=== PATIENT | female | born 1995 | race Caucasian/White ===

== ENCOUNTER 2018-07-21 13:13 | Inpatient (IN) | payer OTHER ==
[2018-07-21 16:27] VITALS: BMI 22.6
--- NOTE | 2018-07-21 17:40 | HP ---
CIWA Score Nausea/Vomitin Muscle Tremors: 1-None Visible, but [place] Anxiety: 3 Agitation: 2 Paroxysmal Sweats: 1-Minimal Palms Moist Orientation: 0-Oriented Tacttile Disturbances: 2-Mild Itch/Numbness/Burn Auditory Disturbances: 0-None Visual Disturbances: 0-None Headache: 1-Very Mild CIWA-Ar Total Score: 13 - Admission Criteria OASAS Guidelines: Admission for Medically Managed Detox: Requires at least one of the followin. CIWA greater than 12 2. Seizures within the past 24 hours 3. Delirium tremens within the past 24 hours 4. Hallucinations within the past 24 hours 5. Acute intervention needed for co occurring medical disorder 6. Acute intervention needed for co occurring psychiatric disorder 7. Severe withdrawal that cannot be handled at a lower level of care (continued vomiting, continued diarrhea, abnormal vital signs) requiring intravenous medication and/or fluids 8. Patient presents the following: CIWA greater than 12 Admission Criteria Met: Admission criteria met Admission ROS [facility] - [facility] Chief Complaint: alcohol withdrawal symptoms Allergies/Adverse Reactions: Allergies Allergy/AdvReac Type Severity Reaction Status Date / Time No Known Allergies Allergy Verified 07/21/18 17:25 History of Present Illness: 22 yo female with hx of marijuana and alcohol dependence is here seeking detox for alcohol withdrawal. Reports drinking has worsen after the of her six months ago. Reports hx of ETOH blackouts with last episode. Reports attempted detox at [facility] last night and left AMA. PMHX: GERD, Asthma, depression. Longest period of sobriety while . Denies suicidal / homicidal ideation Exam Limitations: No Limitations - Ebola screening Have you traveled outside of the country in the last 21 days: No Have you had contact with anyone from an Ebola affected area: No Have you been sick,other than usual withdrawal symptoms: No Do you have a fever: No - Review of Systems Constitutional: Chills, Loss of Appetite, Unintentional Wgt. Loss EENT: reports: No Symptoms Reported Respiratory: reports: No Symptoms reported Cardiac: reports: No Symptoms Reported GI: reports: Poor Appetite, Poor Fluid Intake, Indigestion, Abdominal cramping : reports: No Symptoms Reported Musculoskeletal: reports: Back Pain Integumentary: reports: No Symptoms Reported Neuro: reports: Headache Endocrine: reports: Increased Thirst Hematology: reports: No Symptoms Reported Psychiatric: reports: Orientated x3, Depressed Other Systems: Reviewed and Negative Patient History - Patient Medical History Hx Anemia: No Hx Asthma: Yes (Pt is on MDI.) Hx Chronic Obstructive Pulmonary Disease (COPD): No Hx Cancer: No Hx Cardiac Disorders: No Hx Congestive Heart Failure: No Hx Hypertension: No Hx Hypercholesterolemia: No Hx Pacemaker: No HX Cerebrovascular Accident: No Hx Seizures: No Hx Dementia: No Hx Diabetes: No Hx Gastrointestinal Disorders: No Hx Liver Disease: No Hx Genitourinary Disorders: No Hx Sexually Transmitted Disorders: Yes (Tx for chlamydia) Hx Renal Disease (ESRD): No Hx Thyroid Disease: No Hx Human Immunodeficiency Virus (HIV): No Hx Hepatitis C: No Hx Depression: Yes Hx Suicide Attempt: No Hx Bipolar Disorder: No Hx Schizophrenia: No - Patient Surgical History Past Surgical History: No - PPD History Previous Implant?: Yes Documented Results: Negative w/o proof Implanted On Prior [facility] Admission?: No PPD to be Administered?: Yes - Reproductive History Patient is a Female of Child Bearing Age (11 -55 yrs old): Yes Last Menstrual Period: 06/17/18 Patient : No - Smoking Cessation Smoking history: Current every day smoker Have you smoked in the past 12 months: Yes Aproximately how many cigarettes per day: 20 Hx Chewing Tobacco Use: No Initiated information on smoking cessation: Yes 'Breaking Loose' booklet given: 07/21/18 - Substance & Tx. History Hx Alcohol Use: Yes Hx Substance Use: Yes Substance Use Type: Alcohol, Marijuana Hx Substance Use Treatment: Yes ([facility] was there last night and AMA ) - Substances Abused Alcohol Route: Oral Frequency: Daily Amount used: 10 beers or 1 pint cognac Age of first use: 13 Date of Last Use: 07/21/18 Marijuana/Hashish Route: Smoking Frequency: Daily Amount used: 12 blunts Age of first use: 11 Date of Last Use: 07/20/18 Family Disease History - Family Disease History Family Disease History: Diabetes: Mother (alcoholism, kidney disease ), Heart Disease: Mother, Other: Father (alcoholism, alieve) Admission Physical Exam [facility] - Vital Signs Vital Signs: Vital Signs - 24 hr 07/21/18 16:25 Temperature 98.5 F Pulse Rate 93 H Respiratory 20 Rate Blood Pressure 118/86 - Physical General Appearance: Yes: Appropriately Dressed, Mild Distress, Thin, Anxious HEENTM: Yes: EOMI, Hearing grossly Normal, Normal ENT Inspection, Normocephalic , Normal Voice, CRISTIAN, Pharynx Normal, Tm's normal Respiratory: Yes: Chest Non-Tender, Lungs Clear, Normal Breath Sounds, No Respiratory Distress, No Accessory Muscle Use Neck: Yes: Within Normal Limits Breast: Yes: Breast Exam Deferred Cardiology: Yes: Regular Rhythm, Regular Rate Abdominal: Yes: Normal Bowel Sounds, Non Tender, Flat, Soft Genitourinary: Yes: Within Normal Limits Back: Yes: Normal Inspection Musculoskeletal: Yes: full range of Motion, Gait Steady, Pelvis Stable, Back pain Extremities: Yes: Normal Capillary Refill, Normal Inspection, Normal Range of Motion, Non-Tender Neurological: Yes: rv service technician II-XII NML intact, Fully Oriented, Alert, Motor Strength 5/5, Depressed Affect Integumentary: Yes: Normal Color, Warm, Moist Lymphatic: Yes: Within Normal Limits - Diagnostic (1) Asthma Current Visit: Yes Status: Chronic Qualifiers: Asthma severity: mild Asthma persistence: intermittent Asthma complication type: uncomplicated Qualified Code(s): J45.20 - Mild intermittent asthma, uncomplicated (2) Alcohol dependence with withdrawal Current Visit: Yes Status: Acute Qualifiers: Complication of substance-induced condition: uncomplicated Qualified Code(s ): F10.230 - Alcohol dependence with withdrawal, uncomplicated (3) Marijuana dependence Current Visit: Yes Status: Acute (4) Bereavement Current Visit: Yes Status: Acute Cleared for Admission [facility] - Detox or Rehab [facility] Level of Care: Medically Managed Detox Regimen/Protocol: Librium [facility] Breath Alcohol Content Breath Alcohol Content: 0.051 Urine Pregancy Test - Result Urine Test Results: Negative - NO Line Present Urine Drug Screen - Results Drug Screen Negative: No Urine Drug Screen Results: THC-Marijuana, BZO-Benzodiazepines Inpatient Rehab Admission - Rehab Decision to Admit Inpatient rehab admission?: No
[2018-07-21] MEDS ORDERED: ALBUTEROL SO4 0.083% IH SOL 2.5 MG/3 ML VIAL.NEB. NEB PRN (17:44)
[2018-07-21] MEDS ORDERED: MELATONIN 5 MG TABLETS PO PRN (17:56)
[2018-07-21] MEDS ORDERED: IBUPROFEN 400 MG TABLET (FP) PO PRN (17:56)
[2018-07-21] MEDS ORDERED: MENTHOL/PHENOL 1 EACH UD MM PRN (17:56)
[2018-07-21] MEDS ORDERED: chlordiazePOXIDE HCL 10 MG CAPSULE PO PRN (17:56)
[2018-07-21] MEDS ORDERED: hydrOXYzine PAMOATE 25 MG CAPSULE (FP) PO PRN (17:56)
[2018-07-21] MEDS ORDERED: chlordiazePOXIDE HCL 25 MG CAPSULE PO ONE (17:56)
[2018-07-21] MEDS ORDERED: traZODone HCL 50 MG TABLET (FP) PO PRN (17:56)
[2018-07-21] MEDS ORDERED: MAGNESIUM HYDROX 2400MG/30ML ORAL SUSPENSION 30 ML CUP PO PRN (17:56)
[2018-07-21] MEDS ORDERED: guaiFENesin 200 MG/10 ML 10 ML UNIT-DOSE CUPS PO PRN (17:56)
[2018-07-21] MEDS ORDERED: ONDANSETRON *ODT* 4 MG TABLET SL PRN (17:56)
[2018-07-21] MEDS ORDERED: MAG HYDROX/AL HYDROX/SIMETH 30 ML UNIT-DOSE CUP PO PRN (17:56)
[2018-07-21] MEDS ORDERED: MAGNESIUM CITRATE 300 ML BOTTLE PO PRN (17:56)
[2018-07-21] MEDS ORDERED: ACETAMINOPHEN 325 MG TABLET (FP) PO PRN (17:56)
[2018-07-21] MEDS ORDERED: diazePAM 5 MG TABLET PO ONE (19:45)
[2018-07-21] MEDS ORDERED: chlordiazePOXIDE HCL 25 MG CAPSULE PO SCH (21:00)
[2018-07-21] MEDS: diazePAM 5 MG TABLET PO SCH (21:55)
[2018-07-21] MEDS: METHOCARBAMOL 500 MG TABLET PO PRN (22:20)
[2018-07-22 03:45] LABS: URINE APPEARANCE CLEAR; URINE BILIRUBIN NEGATIVE (<2.0 mg/dL); URINE COLOR LTYELLOW; URINE GLUCOSE (UA) NEGATIVE (NEGATIVE); URINE KETONE NEGATIVE (NEGATIVE); URINE LEUK ESTERASE 1+ (NEGATIVE); URINE NITRITE NEGATIVE (NEGATIVE); URINE PROTEIN NEGATIVE (NEGATIVE); URINE UROBILINOGEN NEGATIVE mg/dL (0.2-1.0)
[2018-07-22 03:51] LABS: EPI CELLS RARE /HPF (FEW); URINE BACTERIA RARE /hpf (NONE SEEN); URINE MUCUS RARE
[2018-07-22] MEDS: diazePAM 5 MG TABLET PO SCH ×3 (05:24→22:12)
[2018-07-22] MEDS: METHOCARBAMOL 500 MG TABLET PO PRN (05:25)
[2018-07-22] MEDS: IBUPROFEN 400 MG TABLET (FP) PO PRN ×2 (05:27→22:41)
[2018-07-22] MEDS ORDERED: THIAMINE HCL 100 MG TABLET (FP) PO SCH (10:00)
[2018-07-22] MEDS: PRENATAL VITAMINS W/ FOLIC ACID TABLET (FP) PO SCH (10:12)
[2018-07-22 10:36] LABS: HEMOGLOBIN 13.4 GM/dL (10.7-15.3); MCH 29.5 pg (25.7-33.7); MCHC 33.6 g/dl (32.0-36.0); MEAN PLT VOLUME 8.7 fl (7.5-11.1); PLATELET COUNT 291 K/MM3 (134-434); RBC 4.54 M/mm3 (3.60-5.2); RDW 17.3 % (11.6-15.6); WHITE BLOOD COUNT 4.5 K/mm3 (4.0-10.0)
[2018-07-22 10:41] LABS: ALBUMIN 3.7 g/dl (3.4-5.0); ALK PHOS 44 U/L (45-117); ANION GAP 6 MMOL/L (8-16); BILIRUBIN,TOTAL 0.9 mg/dL (0.2-1); BLOOD UREA NITROGEN 10 mg/dL (7-18); CALCIUM 8.6 mg/dL (8.5-10.1); CHLORIDE 104 mmol/L (98-107); CO2 28 mmol/L (21-32); CREATININE 0.8 mg/dL (0.55-1.3); GLUCOSE,RANDOM 69 mg/dL (74-106); POTASSIUM 4.7 mmol/L (3.5-5.1); SGOT/AST 18 U/L (15-37); SGPT/ALT 18 U/L (13-61); SODIUM 138 mmol/L (136-145); TOT PROT 7.3 g/dl (6.4-8.2)
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
--- NOTE | 2018-07-22 14:05 | EKG ---
Test Reason : Blood Pressure : / mmHG Vent. Rate : 079 BPM Atrial Rate : 079 BPM P-R Int : 138 ms QRS Dur : 074 ms QT Int : 380 ms P-R-T Axes : 071 042 038 degrees QTc Int : 435 ms NORMAL SINUS RHYTHM POSSIBLE LEFT ATRIAL ENLARGEMENT BORDERLINE ECG NO PREVIOUS ECGS AVAILABLE Confirmed by VARUN URBAN, LONNIE ([id number]) on 07/22/2018 2:04:58 PM Referred By: Confirmed By:LONNIE BOND MD
--- NOTE | 2018-07-22 15:39 | PN ---
[facility] CIWA - CIWA Score Nausea/Vomitin-Mild Nausea/No Vomiting Muscle Tremors: 3 Anxiety: 1-Mildly Anxious Agitation: 2 Paroxysmal Sweats: 1-Minimal Palms Moist Orientation: 1-Uncertain about Date Tacttile Disturbances: 0-None Auditory Disturbances: 0-None Visual Disturbances: 0-None Headache: 0-None Present CIWA-Ar Total Score: 9 S Progress Note (SOAP) Subjective: tremor sweating trouble concentration low energy Objective: 07/22/18 15:40 Vital Signs Temperature 96.8 F L 07/22/18 13:22 Pulse Rate 74 07/22/18 13:22 Respiratory Rate 18 07/22/18 13:22 Blood Pressure 115/71 07/22/18 13:22 O2 Sat by Pulse Oximetry (%) Laboratory Last Values WBC 4.5 K/mm3 (4.0-10.0) 07/22/18 07:00 RBC 4.54 M/mm3 (3.60-5.2) 07/22/18 07:00 Hgb 13.4 GM/dL (10.7-15.3) 07/22/18 07:00 Hct 40.0 % (32.4-45.2) 07/22/18 07:00 MCV 88.0 fl (80-96) 07/22/18 07:00 MCH 29.5 pg (25.7-33.7) 07/22/18 07:00 MCHC 33.6 g/dl (32.0-36.0) 07/22/18 07:00 RDW 17.3 % (11.6-15.6) H 07/22/18 07:00 Plt Count 291 K/MM3 (134-434) 07/22/18 07:00 MPV 8.7 fl (7.5-11.1) 07/22/18 07:00 Sodium 138 mmol/L (136-145) 07/22/18 07:00 Potassium 4.7 mmol/L (3.5-5.1) 07/22/18 07:00 Chloride 104 mmol/L (98-107) 07/22/18 07:00 Carbon Dioxide 28 mmol/L (21-32) 07/22/18 07:00 Anion Gap 6 MMOL/L (8-16) L 07/22/18 07:00 BUN 10 mg/dL (7-18) 07/22/18 07:00 Creatinine 0.8 mg/dL (0.55-1.3) 07/22/18 07:00 Creat Clearance w eGFR > 60 (>60) 07/22/18 07:00 Random Glucose 69 mg/dL (74-106) L 07/22/18 07:00 Calcium 8.6 mg/dL (8.5-10.1) 07/22/18 07:00 Total Bilirubin 0.9 mg/dL (0.2-1) 07/22/18 07:00 AST 18 U/L (15-37) 07/22/18 07:00 ALT 18 U/L (13-61) 07/22/18 07:00 Alkaline Phosphatase 44 U/L (45-117) L 07/22/18 07:00 Total Protein 7.3 g/dl (6.4-8.2) 07/22/18 07:00 Albumin 3.7 g/dl (3.4-5.0) 07/22/18 07:00 Urine Color Ltyellow 07/22/18 00:30 Urine Appearance Clear 07/22/18 00:30 Urine pH 6.0 (5.0-8.0) 07/22/18 00:30 Ur Specific [place] 1.011 (1.010-1.035) 07/22/18 00:30 Urine Protein Negative (NEGATIVE) 07/22/18 00:30 Urine Glucose (UA) Negative (NEGATIVE) 07/22/18 00:30 Urine Ketones Negative (NEGATIVE) 07/22/18 00:30 Urine Blood Negative (NEGATIVE) 07/22/18 00:30 Urine Nitrite Negative (NEGATIVE) 07/22/18 00:30 Urine Bilirubin Negative (<2.0 mg/dL) 07/22/18 00:30 Urine Urobilinogen Negative mg/dL (0.2-1.0) 07/22/18 00:30 Ur Leukocyte Esterase 1+ (NEGATIVE) H 07/22/18 00:30 Urine WBC (Auto) 1 /hpf (3-5) 07/22/18 00:30 Urine RBC (Auto) 1 /hpf (0-3) 07/22/18 00:30 Ur Epithelial Cells Rare /HPF (FEW) 07/22/18 00:30 Urine Bacteria Rare /hpf (NONE SEEN) 07/22/18 00:30 Urine Mucus Rare 07/22/18 00:30 RPR Titer Nonreactive (NONREACTIVE) 07/22/18 07:00 HIV 1&2 Antibody Screen Negative 07/22/18 07:00 HIV P24 Antigen Negative 07/22/18 07:00 lab noted Assessment: 07/22/18 15:41 withdrawal sx Plan: continue detox
[2018-07-22] MEDS: diazePAM 5 MG TABLET PO PRN (16:52)
[2018-07-22] MEDS: ACETAMINOPHEN 325 MG TABLET (FP) PO PRN (16:52)
[2018-07-22] MEDS: hydrOXYzine PAMOATE 50 MG CAPSULE (FP) PO PRN (18:53)
[2018-07-22] MEDS ORDERED: BENZOCAINE 20 % GEL TUBE MM PRN (18:53)
[2018-07-22] MEDS: BACLOFEN 10 MG TABLET (FP) PO PRN (20:03)
[2018-07-22] MEDS ORDERED: chlordiazePOXIDE 5 MG CAPSULE PO SCH (21:00)
[2018-07-23] MEDS: diazePAM 5 MG TABLET PO PRN ×2 (06:17→14:05)
[2018-07-23] MEDS: IBUPROFEN 400 MG TABLET (FP) PO PRN (06:37)
[2018-07-23] MEDS: BACLOFEN 10 MG TABLET (FP) PO PRN (06:53)
[2018-07-23] MEDS: hydrOXYzine PAMOATE 50 MG CAPSULE (FP) PO PRN ×2 (06:53→12:56)
[2018-07-23] MEDS: PRENATAL VITAMINS W/ FOLIC ACID TABLET (FP) PO SCH (10:33)
[2018-07-23] MEDS: diazePAM 5 MG TABLET PO SCH ×2 (10:33→23:01)
[2018-07-23] MEDS ORDERED: NICOTINE POLACRILEX 4 MG GUM BUC PRN (11:16)
[2018-07-23] MEDS: BISMUTH SUBSALICYLATE 524 MG/30 ML UD PO PRN (11:47)
[2018-07-23] MEDS: METHOCARBAMOL 500 MG TABLET PO PRN (14:05)
[2018-07-23] MEDS: IBUPROFEN 600 MG TABLET (FP) PO PRN (16:49)
[2018-07-23] MEDS ORDERED: chlordiazePOXIDE HCL 10 MG CAPSULE PO SCH (21:00)
[2018-07-23] MEDS ORDERED: chlordiazePOXIDE HCL 10 MG CAPSULE PO PRN (21:00)
[2018-07-23] MEDS ORDERED: THIAMINE HCL 100 MG TABLET (FP) PO SCH (22:00)
--- NOTE | 2018-07-24 00:33 | PN ---
[facility] CIWA - CIWA Score Nausea/Vomitin-No Nausea/No Vomiting Muscle Tremors: 3 Anxiety: 4-Mod. Anxious/Guarded Agitation: 2 Paroxysmal Sweats: No Perspiration Orientation: 0-Oriented Tacttile Disturbances: 2-Mild Itch/Numbness/Burn Auditory Disturbances: 0-None Visual Disturbances: 0-None Headache: 0-None Present CIWA-Ar Total Score: 11 BHS Progress Note (SOAP) Subjective: Fatigue, Anxious, Tremors. Objective: PATIENT A & O X 3, OBSERVED AMBULATING ON UNIT. IN NO ACUTE DISTRESS. 07/24/18 00:32 Laboratory Tests 07/22/18 07/22/18 07/22/18 00:30 07:00 07:00 WBC 4.5 RBC 4.54 Hgb 13.4 Hct 40.0 MCV 88.0 MCH 29.5 MCHC 33.6 RDW 17.3 H Plt Count 291 MPV 8.7 Sodium Potassium Chloride Carbon Dioxide Anion Gap BUN Creatinine Creat Clearance w eGFR Random Glucose Calcium Total Bilirubin AST ALT Alkaline Phosphatase Total Protein Albumin Urine Color Ltyellow Urine Appearance Clear Urine pH 6.0 Ur Specific [place] 1.011 Urine Protein Negative Urine Glucose (UA) Negative Urine Ketones Negative Urine Blood Negative Urine Nitrite Negative Urine Bilirubin Negative Urine Urobilinogen Negative Ur Leukocyte Esterase 1+ H Urine WBC (Auto) 1 Urine RBC (Auto) 1 Ur Epithelial Cells Rare Urine Bacteria Rare Urine Mucus Rare RPR Titer HIV 1&2 Antibody Screen Negative HIV P24 Antigen Negative 07/22/18 07/22/18 07:00 07:00 WBC RBC Hgb Hct MCV MCH MCHC RDW Plt Count MPV Sodium 138 Potassium 4.7 Chloride 104 Carbon Dioxide 28 Anion Gap 6 L BUN 10 Creatinine 0.8 Creat Clearance w eGFR > 60 Random Glucose 69 L Calcium 8.6 Total Bilirubin 0.9 AST 18 ALT 18 Alkaline Phosphatase 44 L Total Protein 7.3 Albumin 3.7 Urine Color Urine Appearance Urine pH Ur Specific [place] Urine Protein Urine Glucose (UA) Urine Ketones Urine Blood Urine Nitrite Urine Bilirubin Urine Urobilinogen Ur Leukocyte Esterase Urine WBC (Auto) Urine RBC (Auto) Ur Epithelial Cells Urine Bacteria Urine Mucus RPR Titer Nonreactive HIV 1&2 Antibody Screen HIV P24 Antigen LABS NOTED. Assessment: 07/24/18 00:33 WITHDRAWAL SYMPTOMS. Plan: CONTINUE DETOX. INCREASE DAILY PO FLUID INTAKE.
[2018-07-24] MEDS: BACLOFEN 10 MG TABLET (FP) PO PRN (05:59)
[2018-07-24] MEDS: IBUPROFEN 600 MG TABLET (FP) PO PRN (05:59)
[2018-07-24] MEDS ORDERED: diazePAM 5 MG TABLET PO SCH (06:00)
[2018-07-24] MEDS: diazePAM 5 MG TABLET PO PRN (09:19)
[2018-07-24] MEDS: PRENATAL VITAMINS W/ FOLIC ACID TABLET (FP) PO SCH (09:19)
[2018-07-24] MEDS: hydrOXYzine PAMOATE 50 MG CAPSULE (FP) PO PRN (09:21)
[2018-07-24 09:51] VITALS: BP 108/75; PULSE 107; TEMP 96.6
[2018-07-24] MEDS: ACETAMINOPHEN 325 MG TABLET (FP) PO PRN (10:31)
[2018-07-24] MEDS: BISMUTH SUBSALICYLATE 524 MG/30 ML UD PO PRN (10:31)
--- NOTE | 2018-07-24 20:34 | DS ---
[facility] Detox Discharge Summary Admission Date: 07/21/18 Discharge Date: 07/24/18 - History Present History: Alcohol Dependence, Cannabis Dependence Additional Comments: PATIENT GOING TO [facility] ([place] [place]) FOR AFTERCARE. PATIENT WAS DISCHARGED FROM DETOX UNIT IN STABLE MEDICAL CONDITION. Pertinent Past History: Asthma, Bereavement, History Of Depression, G.E.R.D. - Physical Exam Results Vital Signs: Vital Signs Temperature 96.6 F L 07/24/18 09:50 Pulse Rate 107 H 07/24/18 09:50 Respiratory Rate 18 07/24/18 09:50 Blood Pressure 108/75 07/24/18 09:50 O2 Sat by Pulse Oximetry (%) Pertinent Admission Physical Exam Findings: WITHDRAWAL SYMPTOMS. Laboratory Tests 07/22/18 07/22/18 07/22/18 00:30 07:00 07:00 WBC 4.5 RBC 4.54 Hgb 13.4 Hct 40.0 MCV 88.0 MCH 29.5 MCHC 33.6 RDW 17.3 H Plt Count 291 MPV 8.7 Sodium Potassium Chloride Carbon Dioxide Anion Gap BUN Creatinine Creat Clearance w eGFR Random Glucose Calcium Total Bilirubin AST ALT Alkaline Phosphatase Total Protein Albumin Urine Color Ltyellow Urine Appearance Clear Urine pH 6.0 Ur Specific [place] 1.011 Urine Protein Negative Urine Glucose (UA) Negative Urine Ketones Negative Urine Blood Negative Urine Nitrite Negative Urine Bilirubin Negative Urine Urobilinogen Negative Ur Leukocyte Esterase 1+ H Urine WBC (Auto) 1 Urine RBC (Auto) 1 Ur Epithelial Cells Rare Urine Bacteria Rare Urine Mucus Rare RPR Titer HIV 1&2 Antibody Screen Negative HIV P24 Antigen Negative 07/22/18 07/22/18 07:00 07:00 WBC RBC Hgb Hct MCV MCH MCHC RDW Plt Count MPV Sodium 138 Potassium 4.7 Chloride 104 Carbon Dioxide 28 Anion Gap 6 L BUN 10 Creatinine 0.8 Creat Clearance w eGFR > 60 Random Glucose 69 L Calcium 8.6 Total Bilirubin 0.9 AST 18 ALT 18 Alkaline Phosphatase 44 L Total Protein 7.3 Albumin 3.7 Urine Color Urine Appearance Urine pH Ur Specific [place] Urine Protein Urine Glucose (UA) Urine Ketones Urine Blood Urine Nitrite Urine Bilirubin Urine Urobilinogen Ur Leukocyte Esterase Urine WBC (Auto) Urine RBC (Auto) Ur Epithelial Cells Urine Bacteria Urine Mucus RPR Titer Nonreactive HIV 1&2 Antibody Screen HIV P24 Antigen LABS NOTED. - Treatment Hospital Course: Detox Protocol Followed, Detoxed Safely, Responded well, Discharged Condition Good, Rehab Referral Accepted Patient has Accepted a Rehab Referral to: [facility] ([place] [place]). - Medication Discharge Medications: Ambulatory Orders Albuterol Sulfate Inhaler - [Ventolin Hfa Inhaler -] 1 - 2 inh PO Q4H #1 inhaler 07/23/18 - Diagnosis (1) Alcohol dependence with withdrawal Status: Acute Qualifiers: Complication of substance-induced condition: uncomplicated Qualified Code(s ): F10.230 - Alcohol dependence with withdrawal, uncomplicated (2) Bereavement Status: Acute (3) Marijuana dependence Status: Acute (4) Substance induced mood disorder Status: Acute (5) Asthma Status: Chronic Qualifiers: Asthma severity: mild Asthma persistence: intermittent Asthma complication type: uncomplicated Qualified Code(s): J45.20 - Mild intermittent asthma, uncomplicated - AMA Did Patient Leave Against Medical Advice: No
== END 2018-07-24 12:32 | disposition other institution (70) | DRG 775 ==
LOC: YASAS 13:13 → Y3N 18:18
PROVIDERS: ADMIT Surgery; ATTEND Surgery
PROC: HZ2ZZZZ Detoxification Services for Substance Abuse Treatment (ICD-10-PCS; principal; 2018-07-21)
DX: F10.230 Alcohol dependence with withdrawal, uncomplicated (principal); F12.20 Cannabis dependence, uncomplicated; F19.24 Other psychoactive substance dependence with psychoactive substance-induced mood disorder; F32.9 Major depressive disorder, single episode, unspecified; K21.9 Gastro-esophageal reflux disease without esophagitis; J45.20 Mild intermittent asthma, uncomplicated; Z63.4 Disappearance and death of family member; Z86.19 Personal history of other infectious and parasitic diseases
CPT/HCPCS: 36415; 80053; 81003; 81015; 85027; 86593; 87389; 93005; 93010; 94640; J0475; Q0162